=== PATIENT | female | born 1995 | race Two or more races ===

== ENCOUNTER 2017-08-06 14:53 | Inpatient (IN) | payer MEDICAID ==
[~2017-08-06] VITALS: Ht 170.2 cm; Wt 90.7 kg
[2017-08-06] MEDS ORDERED: SODIUM CHLORIDE 0.9% 1,000 ML IV ONE (18:48)
[2017-08-06] MEDS ORDERED: ONDANSETRON HCL 4MG/2ML VIAL IV STA (18:48)
[2017-08-06] MEDS ORDERED: KETOROLAC 30MG/ML VIAL IV STA (18:48)
[2017-08-06] MEDS ORDERED: ONDANSETRON 4MG ODT PO ONE (19:15)
[2017-08-06 19:20] LABS: CLARITY URINE CLOUDY (CLEAR); COLOR URINE DARK YELLOW (YELLOW); GLUCOSE URINE NEGATIVE (NEGATIVE); KETONES URINE 4+ (NEGATIVE); LEUKOCYTE ESTERASE URINE 1+ (NEGATIVE); NITRITE URINE NEGATIVE (NEGATIVE); OCCULT BLOOD URINE NEGATIVE (NEGATIVE); PH URINE 5.5 (4.5-8.0); PROTEIN URINE 1+ (NEGATIVE); SPECIFIC GRAVITY URINE 1.021 (1.005-1.030)
[2017-08-06 19:42] LABS: PROTHROMBIN TIME 10.6 sec (9.4-11.6)
[2017-08-06 19:44] LABS: BASOPHILS % 0.3 % (0.0-2.0); HEMATOCRIT. 38.5 % (36.0-48.0); HEMOGLOBIN. 12.8 g/dL (12.0-16.0); MEAN CORPUSCULAR HEMOGLOBIN 27.7 pg (28.0-32.0); MEAN CORPUSCULAR VOLUME 83.2 fL (81.0-99.0); MEAN PLATELET VOLUME 8.6 fl (7.4-10.4); MONOCYTES % 5.4 % (2.0-8.0); NEUTROPHILS % 84.3 % (40.0-76.0); PLATELET 309 x1000/uL (130-400); RED BLOOD CELL COUNT 4.63 mill/uL (4.2-5.4); RED CELL DISTRIBUTION WIDTH 17.3 % (11.6-14.6)
[2017-08-06 19:53] LABS: CARBON DIOXIDE 23 mEq/L (21-32); CHLORIDE 107 mEq/L (98-107)
[2017-08-06 20:21] LABS: B-HCG QUANTITATIVE 4356 mIU/mL (<3)
[2017-08-07] MEDS ORDERED: ACETAMINOPHEN 325MG TABLET PO PRN (00:15)
[2017-08-07] MEDS ORDERED: ONDANSETRON HCL 4MG/2ML VIAL IV PRN (00:15)
[2017-08-07] MEDS ORDERED: MAGNESIUM/ALUMINUM HYDROXIDE/SIMETHICONE 30ML UDC PO PRN (00:15)
[2017-08-07] MEDS ORDERED: MORPHINE SULFATE 2 MG/ML CPJ (NOT FOR IM USE) IV PRN (00:15)
[2017-08-07] MEDS ORDERED: HYDROCODONE/ACETAMINOPHEN 5/325MG TABLET PO PRN (00:15)
[2017-08-07] MEDS ORDERED: IPRATROPIUM/ALBUTEROL 0.5-3(2.5)MG/3ML NEB INH PRN (00:15)
[2017-08-07] MEDS ORDERED: PIPERACILLIN/TAZ 3.375G PREMIX 50 ML IV SCH (01:00)
[2017-08-07] MEDS: SODIUM CHLORIDE 0.9% 1,000 ML IV SCH ×2 (01:11→11:26)
[2017-08-07 08:20] VITALS: BP 110/61
[2017-08-07] MEDS ORDERED: ENOXAPARIN 30MG/0.3ML SYR SUBCUT SCH (10:00)
[2017-08-07 11:57] VITALS: BP 110/65
[2017-08-07] MEDS ORDERED: CEFTRIAXONE 1 G PREMIX 50 ML IV SCH (12:00)
[2017-08-07 14:00] VITALS: BP 117/67
[2017-08-07 14:09] LABS: BASOPHILS % 0.5 % (0.0-2.0); EOSINOPHILS % 0.2 % (0.0-5.0); HEMOGLOBIN. 11.9 g/dL (12.0-16.0); LYMPHOCYTES % 17.2 % (20.0-50.0); MEAN CORPUSCULAR HEMOGLOBIN 27.9 pg (28.0-32.0); MONOCYTES % 8.3 % (2.0-8.0); NEUTROPHILS % 73.8 % (40.0-76.0); PLATELET 284 x1000/uL (130-400); RED BLOOD CELL COUNT 4.29 mill/uL (4.2-5.4); RED CELL DISTRIBUTION WIDTH 17.5 % (11.6-14.6)
[2017-08-07 14:32] LABS: CHLORIDE 106 mEq/L (98-107)
[2017-08-07 14:42] LABS: CARBON DIOXIDE 24 mEq/L (21-32)
[2017-08-07 16:00] VITALS: BP 117/67
[2017-08-07] MEDS ORDERED: POTASSIUM CHLORIDE 20MEQ TABLET SR PO NR (16:15)
== END 2017-08-07 18:30 | disposition left against medical advice (07) | DRG 566 ==
LOC: ER 15:08 → ENRESERV 08-07 07:32 → 6EST 08-07 08:20 → CANBEDREQ 08-07 08:38
PROVIDERS: ADMIT Internal Medicine; ATTEND Internal Medicine
DX: O99.611 Diseases of the digestive system complicating pregnancy, first trimester (principal); K85.10 Biliary acute pancreatitis without necrosis or infection; K80.70 Calculus of gallbladder and bile duct without cholecystitis without obstruction; Z53.21 Procedure and treatment not carried out due to patient leaving prior to being seen by health care provider; Z3A.01 Less than 8 weeks gestation of pregnancy
CPT/HCPCS: 36415; 76705; 76801; 80053; 81001; 83690; 84702; 85025; 85610; 86850; 86900; 87040; 87086; 93970; 96365; 96367; 99285; J0696; J2543; J7030; Q0162

== ENCOUNTER 2022-12-27 17:16 | Emergency (ER) | payer MEDICAID ==
[~2022-12-27] VITALS: Ht 172.7 cm; Wt 101.0 kg
[2022-12-27 17:42] VITALS: BP 135/89
[2022-12-27] MEDS ORDERED: LIDOCAINE HCL 1% 20ML VIAL (Pyxis) INJ INFIL ONE (19:45)
[2022-12-27] MEDS ORDERED: CEPHALEXIN 250MG CAPSULE PO ONE (20:00)
[2022-12-27] MEDS ORDERED: SULFAMETHOXAZOLE/TRIMETHOPRIM 800/160MG TABLET PO ONE (20:00)
[2022-12-27] MEDS ORDERED: IBUPROFEN 600MG TABLET PO ONE (20:00)
[2022-12-27] MEDS ORDERED: CEPH500C2 MT (22:32)
[2022-12-27] MEDS ORDERED: SULF1TAB48 MT (22:32)
== END 2022-12-27 23:03 | disposition home or self-care (01) ==
LOC: ER 17:16
DX: L02.411 Cutaneous abscess of right axilla (principal); R03.0 Elevated blood-pressure reading, without diagnosis of hypertension
CPT/HCPCS: 10060; 81025; 99284; J3490; Z7610